=== PATIENT | male | born 1980 | race Caucasian/White ===

== ENCOUNTER 2017-06-16 23:04 | Inpatient (IN) | payer BC ==
[~2017-06-16] VITALS: Ht 175.3 cm; Wt 77.1 kg
[2017-06-17 00:03] LABS: HEMATOCRIT 33.8 % (42.0-54.0); HEMOGLOBIN 12.3 g/dL (13.5-17.5); LYMPHOCYTES 30.3 % (15-50); MCH 31.9 pg (26.0-34.0); MCHC 36.4 g/dL (31.0-37.0); MCV 87.8 fL (80.0-100.0); MEAN PLATELET VOLUME 9.3 fL (7.4-10.4); NEUTROPHILS 60.8 % (40-80); PLATELET COUNT 195 10x3/uL (130-400); RBC 3.85 10x6/uL (4.20-6.10); RDW 12.2 % (11.5-14.5); WBC 5.9 10x3/uL (4.8-10.8)
[2017-06-17 00:24] LABS: ALBUMIN 3.3 g/dL (3.4-5.0); ALKALINE PHOSPHATASE 113 U/L (46-116); ALT (SGPT) 24 U/L (10-68); BILIRUBIN - TOTAL 0.42 mg/dL (0.2-1.3); CALC OSMOLALITY 294 mosm/kg (275-300); CALCIUM 8.3 mg/dL (8.5-10.1); CARBON DIOXIDE 31.3 mmol/L (21.0-32.0); CHLORIDE - SERUM 102 mmol/L (98-107); CREATININE - SERUM 0.8 mg/dL (0.6-1.3); POTASSIUM - SERUM 4.2 mmol/L (3.5-5.1); PROTEIN - SERUM 6.4 g/dL (6.4-8.2); SODIUM 139 mmol/L (136-145); UREA NITROGEN 11 mg/dL (7-18); eGFR NON AFRICAN AMERICAN > 90 mL/min (90-120)
[2017-06-17 00:33] LABS: GLUCOSE 421 mg/dL (74-106)
[2017-06-17 02:18] LABS: ERYTHROCYTE SEDIMENTATION RATE 13 mm/hr (0-15)
[2017-06-17 12:48] VITALS: BP 124/79
[2017-06-17 12:52] LABS: CHOL - HDL RATIO 4.2 ratio (2.3-4.9); LDL-HDL RATIO 1.6 ratio (1.5-3.5); THYROID STIMULATING HORMONE 0.95 uIU/mL (0.36-3.74)
[2017-06-17 16:28] VITALS: BP 139/95
[2017-06-17 20:00] VITALS: BP 104/57
[2017-06-18 01:14] VITALS: BP 119/82
[2017-06-18 04:00] VITALS: BP 113/71
[2017-06-18 06:52] LABS: BASOPHILS 0.4 % (0-2); HEMATOCRIT 36.9 % (42.0-54.0); HEMOGLOBIN 13.1 g/dL (13.5-17.5); LYMPHOCYTES 28.2 % (15-50); MCH 31.7 pg (26.0-34.0); MCHC 35.5 g/dL (31.0-37.0); MCV 89.3 fL (80.0-100.0); MONOCYTES 5.4 % (2-11); PLATELET COUNT 208 10x3/uL (130-400); RBC 4.13 10x6/uL (4.20-6.10)
[2017-06-18 07:11] LABS: ALBUMIN 3.2 g/dL (3.4-5.0); ALKALINE PHOSPHATASE 75 U/L (46-116); ALT (SGPT) 23 U/L (10-68); CALC OSMOLALITY 286 mosm/kg (275-300); CALCIUM 8.6 mg/dL (8.5-10.1); CARBON DIOXIDE 26.9 mmol/L (21.0-32.0); CHLORIDE - SERUM 105 mmol/L (98-107); CREATININE - SERUM 0.7 mg/dL (0.6-1.3); GLUCOSE 219 mg/dL (74-106); PROTEIN - SERUM 6.3 g/dL (6.4-8.2); SODIUM 141 mmol/L (136-145); UREA NITROGEN 10 mg/dL (7-18); eGFR NON AFRICAN AMERICAN > 90 mL/min (90-120)
[2017-06-18 09:21] VITALS: BP 126/79
[2017-06-18 10:22] LABS: C-PEPTIDE 2.1 ng/mL (1.1-4.4)
[2017-06-18 10:48] VITALS: BMI 25.1
[2017-06-18 12:31] VITALS: BP 143/97
[2017-06-18] MEDS ORDERED: AUGMENTIN 875-11 TAB PO (14:05)
[2017-06-18] MEDS ORDERED: GLYBURIDE2.5 MG PO (14:05)
[2017-06-18 22:21] VITALS: Ht 175.3 cm; Wt 77.1 kg
== END 2017-06-18 16:11 | disposition home or self-care (01) | DRG 639 ==
LOC: D.ER 23:04 → D.EDHOLD 06-17 01:53 → D.MS 06-17 01:53
PROVIDERS: Family Medicine; Physician Assistant
PROC: 0Y9N0ZZ Drainage of Left Foot, Open Approach (ICD-10-PCS; principal; 2017-06-18)
DX: E11.621 Type 2 diabetes mellitus with foot ulcer (principal); L97.529 Non-pressure chronic ulcer of other part of left foot with unspecified severity; L03.032 Cellulitis of left toe; E86.0 Dehydration

== ENCOUNTER → 2017-07-22 08:33 | Outpatient (CLI) | payer BC ==
[2017-06-18 22:21] VITALS: BMI 25.1
[~2017-07-22 08:33] MED LIST: AUGMENTIN 875-11 TAB PO; GLYBURIDE2.5 MG PO
== END | disposition home or self-care (01) ==
LOC: D.CT 08:33
DX: K86.89 Other specified diseases of pancreas (principal)

== ENCOUNTER → 2017-09-08 11:10 | Outpatient (CLI) | payer BC ==
[2017-06-18 22:21] VITALS: BMI 25.1
== END | disposition home or self-care (01) ==
LOC: D.NM 11:10
DX: R10.9 Unspecified abdominal pain (principal); R11.2 Nausea with vomiting, unspecified